=== PATIENT | female | born 1945 | race African-American/Black ===

== ENCOUNTER 2019-05-22 11:11 | Inpatient (IN) ==
[2019-05-22 12:47] LABS: EOS# 0.01 X1000 (0.0-0.7); EOS% 0.3 % (0.0-10.0); HEMATOCRIT 22.4 % (37.0-47.0); HEMOGLOBIN 7.3 g/dL (12.0-16.0); LYMPH# 0.31 X1000 (1.2-3.4); LYMPH% 10.1 % (20.5-51.1); MCH 31.3 PG (27-31); MCHC 32.6 g/dL (33-37); MCV 96.1 FL (81-99); MONO# 0.25 X1000 (0.11-0.59); MONO% 8.1 % (1.7-9.3); MPV 8.6 FL (7.4-10.4); NEUT% 81.5 % (42.2-75.2); PLT 181 X1000 (130-400); RBC 2.33 XMIL (4.2-5.4); RDW 12.7 % (11.5-14.5); WBC 3.07 X1000 (4.8-10.8)
--- NOTE | 2019-05-22 12:49 | Diag Imaging Result Doc PS360 ---
EXAM: XRAY PELVIS W/HIP 2-3VW LT 05/22/2019 HISTORY: fall, injury TECHNIQUE: AP pelvis and left hip three views COMMENT: There has been previous internal fixation of the left femur. There is some heterotopic bone formation. The joint spaces are fairly well-maintained and symmetrical. There is a lytic lesion in the superior pubic ramus on the left which may extend into the acetabular region. This was not present on the CT of 04/11/2017. IMPRESSION: Lytic lesion in the left superior pubic ramus, probably due to metastatic disease. Electronically signed by Rajeev Mcdaniel 05/22/2019 12:47 PM
[2019-05-22 13:31] LABS: AGAP 11; ALKALINE PHOSPHATASE 325 U/L (32-104); BUN 18 mg/dL (8-22); CALCIUM 7.8 mg/dL (8.8-10.2); CHLORIDE 90 mmol/L (98-107); COSMO 253; CREATININE 0.8 mg/dL (0.5-0.9); ESTIMATED GFR > 60; GLUCOSE 125 mg/dL (70-104); GOT 57 U/L (10-30); GPT 6 U/L (10-36); POTASSIUM 5.2 mmol/L (3.5-5.1); SODIUM 124 mmol/L (136-145); TCO2 23 mmol/L (25-35); TOTAL BILIRUBIN 0.38 mg/dL (0.20-1.00); TOTAL PROTEIN 6.1 g/dL (6.3-8.3)
[2019-05-22] MEDS ORDERED: M.V.I.-12 10 ML, FOLIC ACID 1 MG, MAGNESIUM SULFATE 1 GM, THIAMINE 100 MG in NS 1,000 ML IV ONE (14:17)
[2019-05-22 14:19] LABS: URINE SOURCE CATH
[2019-05-22 14:23] LABS: BILIRUBIN URINE NEGATIVE (NEGATIVE); BLOOD URINE TRACE (NEGATIVE); COLOR ORANGE; GLUCOSE URINE NEGATIVE (NEGATIVE); KETONE URINE NEGATIVE (NEGATIVE); LEUKOCYTES URINE MODERATE (NEGATIVE); NITRITE URINE POSITIVE (NEGATIVE); PROTEIN URINE 50 mg/dL (NEGATIVE); SP GRAVITY URINE 1.012; TURBIDITY URINE HAZY (CLEAR); UR EPITHELIAL CELLS <10 /HPF (<10); URINE BACTERIA 2+ /HPF; URINE RBC <10 /HPF (<10); URINE WBC TNTC /HPF (<10); UROBILINOGEN URINE 4 mg/dL (NORMAL)
[2019-05-22] MEDS ORDERED: ROCEPHIN 1 GM in NS 50 ML IV ONE (14:45)
--- NOTE | 2019-05-22 15:11 | PROVIDER DOCUMENTATION ---
This chart was entered by Gricelda Dahl Scribe, acting as scribe for Joe Perea MD. HPI-Musculoskeletal Pain/Inj - GENERAL Chief Complaint: Hip Pain Stated Complaint: HIP PAIN Time Seen by Provider: 05/22/19 12:05 Source: family - HX OF PRESENT ILLNESS-MUSKULOSKELTAL Nature of Presenting Problem: Patient is a 73 year old female who presents with left hip pain. Family states left hip pain started yesterday. Family reports patient fell 1 week ago. Family states patient was diagnosed with cancer in December 2018. Family reports decrease in appetite over the last 2 weeks. Family denies patient is on hospice. Quality of Pain: reports: aching Severity in ED: mild Onset/Duration: 24 hours ago Timing: still present Any recent injury?: Yes (fall 1 weeks ago ) Locality of Occurance: Home Similar Symptoms Previously?: Yes Recently seen or treated by another doctor?: Yes - FALL INJURY Location of Pain/Injury: reports: lower extremity (left hip) Pain Radiation: reports: no radiation Reason for Fall: reports: unknown Loss of Consciousness: no loss of consciousness Injury Associated Symptoms: reports: denies symptoms - HIP/PELVIS PAIN/INJURY Hip Pain Location: reports: hip (L) Pain Radiation: reports: no radiation Context / Method of Injury: reports: unknown Associated Symptoms: reports: denies symptoms - LOWER EXTREMITY PAIN/INJURY Lower Extremities Pain: hip: left Context / Method of Injury: reports: unknown Associated Symptoms: reports: denies symptoms Review of Systems - Adult - REVIEW OF SYSTEMS - ADULT Constitutional: reports: no symptoms reported. denies: chills, fever, fatique Eyes: reports: no symptoms reported Ears, Nose, Mouth & Throat: reports: no symptoms reported Cardiovascular: reports: no symptoms reported Respiratory: reports: no symptoms reported Gastrointestinal: reports: see HPI, poor appetite. denies: nausea, vomiting Genitourinary: reports: no symptoms reported Musculoskeletal: reports: see HPI, other (left hip pain). denies: back pain, neck pain Integumentary: reports: no symptoms reported Neurological: reports: no symptoms reported Psychiatric: reports: no symptoms reported Endocrine: reports: no symptoms reported Hematologic/Lymphatic: reports: no symptoms reported Allergic/Immunologic: reports: no symptoms reported All Other Systems: Reviewed and Negative Past History - Adult - PAST MEDICAL HISTORY-ADULT Review of Records: reports: Old Records Reviewed, Nursing Assessment Review, Medications Reviewed, Social history reviewed & non-contributory. Major Childhood Illnesses: reports: denies history Cardiovascular: reports: HTN Respiratory: reports: denies history Gastrointestinal: reports: GERD, liver disease Obstetrical/Gynecological: reports: other (cervical ca) Genitourinary: reports: kidney disease, kidney stones (stent placement) Musculoskeletal: reports: denies history Neurological: reports: CVA, dementia, Seizures/Epilepsy, other (anneurysm and head bleed) Endocrine/Immune: reports: thyroid disorder Other Conditions: reports: denies history - PRIOR SURGERIES/PROCEDURES Surgical/Procedure History: reports: reviewed, not pertinent, other (bladder stent, cataract removal, brain) - IMMUNIZATION STATUS Childhood Immunizations: See Nurse Assessment Flu Vaccine: See Nurse Assessment - FAMILY HISTORY Family History: reviewed, not pertinent - SOCIAL HISTORY Smoking: denies Substance Use: denies Living Situation: family Physical Exam-Injury Related - Physical Exam-Injury Related Initial Vital Signs Reviewed: Yes General Appearance: alert, no apparent distress, cachetic, thin. negative: lethargic Respiratory: chest non-tender, lungs clear, normal breath sounds. negative: rhonchi, wheezing Cardiovascular: normal peripheral pulses, regular rate, rhythm. negative: tac hycardia Abdominal Exam: normal bowel sounds, non tender, soft. negative: guarding Extremity: non-tender, normal inspection. negative: deformity, erythema Integumentary: normal color, warm/dry. negative: ecchymosis, abrasion, laceration Neurologic: grossly normal. negative: aphasia, facial droop Psych/Mental Status: normal mood/affect, oriented x 3. negative: anxious Progress - PLAN OF CARE/RESULTS Progress/Plan/Lab Results: Vital Signs - 8 hr 05/22/19 11:16 05/22/19 14:18 05/22/19 14:30 Temperature 97.8 F Pulse Rate 92 H Respiratory Rate 20 Blood Pressure 115/78 110/66 O2 Sat by Pulse Oximetry 98 100 05/22/19 14:40 05/22/19 14:50 05/22/19 15:00 Temperature Pulse Rate Respiratory Rate Blood Pressure O2 Sat by Pulse Oximetry 100 100 100 05/22/19 15:02 05/22/19 15:10 05/22/19 15:20 Temperature Pulse Rate Respiratory Rate Blood Pressure 100/67 O2 Sat by Pulse Oximetry 100 100 100 05/22/19 15:30 05/22/19 15:40 05/22/19 15:50 Temperature Pulse Rate Respiratory Rate Blood Pressure O2 Sat by Pulse Oximetry 100 94 L 95 05/22/19 16:00 05/22/19 16:02 05/22/19 16:10 Temperature Pulse Rate Respiratory Rate Blood Pressure 112/77 O2 Sat by Pulse Oximetry 98 99 97 05/22/19 16:20 Temperature Pulse Rate Respiratory Rate Blood Pressure O2 Sat by Pulse Oximetry 100 Laboratory Results - last 24 hr 05/22/19 05/22/19 05/22/19 12:20 12:20 12:20 WBC 3.07 L RBC 2.33 L Hgb 7.3 L Hct 22.4 L MCV 96.1 MCH 31.3 H MCHC 32.6 L RDW Std Deviation 12.7 Plt Count 181 MPV 8.6 Immature Gran % (Auto) 0.0 Neut % (Auto) 81.5 H Lymph % (Auto) 10.1 L [place] % (Auto) 8.1 Eos % (Auto) 0.3 Baso % (Auto) 0.0 Immature Gran # (Auto) 0.00 Neut # (Auto) 2.50 Lymph # (Auto) 0.31 L [place] # (Auto) 0.25 Eos # (Auto) 0.01 Baso # (Auto) 0.00 Sodium 124 L Potassium 5.2 H Chloride 90 L Carbon Dioxide 23 L Anion Gap 11 BUN 18 Creatinine 0.8 Estimated GFR/1.73 m2 > 60 BUN/Creatinine Ratio 23 Glucose 125 H Calculated Osmolality 253 Calcium 7.8 L Phosphorus Magnesium Total Bilirubin 0.38 AST 57 H ALT 6 L Alkaline Phosphatase 325 H Total Protein 6.1 L Albumin 3.0 L Globulin 3.1 Albumin/Globulin Ratio 1.0 Urine Source Urine Color Urine Turbidity Urine pH Ur Specific [place] Urine Protein Ur Glucose (Stick) Ur Ketones (Stick) Urine Blood Urine Nitrite Urine Bilirubin Urobilinogen Dipstick Urine Leukocytes Urine WBC (Auto) Urine RBC (Auto) U Epithel Cells (Auto) Urine Bacteria (Auto) Total Phenytoin 2.30 L 05/22/19 05/22/19 05/22/19 12:20 12:20 14:16 WBC RBC Hgb Hct MCV MCH MCHC RDW Std Deviation Plt Count MPV Immature Gran % (Auto) Neut % (Auto) Lymph % (Auto) [place] % (Auto) Eos % (Auto) Baso % (Auto) Immature Gran # (Auto) Neut # (Auto) Lymph # (Auto) [place] # (Auto) Eos # (Auto) Baso # (Auto) Sodium Potassium Chloride Carbon Dioxide Anion Gap BUN Creatinine Estimated GFR/1.73 m2 BUN/Creatinine Ratio Glucose Calculated Osmolality Calcium Phosphorus 3.2 Magnesium 1.5 Total Bilirubin AST ALT Alkaline Phosphatase Total Protein Albumin Globulin Albumin/Globulin Ratio Urine Source CATH Urine Color ORANGE Urine Turbidity HAZY Urine pH 6.0 Ur Specific [place] 1.012 Urine Protein 50 A Ur Glucose (Stick) NEGATIVE Ur Ketones (Stick) NEGATIVE Urine Blood TRACE A Urine Nitrite POSITIVE A Urine Bilirubin NEGATIVE Urobilinogen Dipstick 4 A Urine Leukocytes MODERATE A Urine WBC (Auto) TNTC A Urine RBC (Auto) <10 U Epithel Cells (Auto) <10 Urine Bacteria (Auto) 2+ Total Phenytoin Orders Category Date Time Status [facility] Routine AdmDCTranf 05/22/19 16:43 Active Activity - Up with Assistance ORDERED Care 05/22/19 16:43 Active Intake and Output-Strict ORDERED Care 05/22/19 16:43 Active Vital Signs Order Q 8-HR ASSESS Care 05/22/19 16:43 Active Z-Document. for Tele Applied ORDERED Care 05/22/19 16:44 Active Social Service Consult Routine Cons 05/22/19 16:43 Active Mechanical Soft Diet Diet 05/22/19 16:44 Active XRAY PELVIS W/HIP 2-3VW LT [RAD] Stat Exams 05/22/19 12:07 Completed CBC WITH DIFF [HEME] Routine Lab 05/23/19 06:00 Uncollected CBC WITH ELECTRONIC DIFF [HEME] Stat Lab 05/22/19 12:20 Completed COMPREHENSIVE METABOLIC PANEL [CHEM] Routine Lab 05/23/19 06:00 Uncollected COMPREHENSIVE METABOLIC PANEL [CHEM] Stat Lab 05/22/19 12:20 Completed MAGNESIUM [CHEM] Routine Lab 05/23/19 06:00 Uncollected MAGNESIUM [CHEM] Stat Lab 05/22/19 12:20 Completed PHENYTOIN [TDM] Stat Lab 05/22/19 12:20 Completed PHOSPHORUS [CHEM] Stat Lab 05/22/19 12:20 Completed TSH Routine Lab 05/23/19 06:00 Uncollected UA [URINALYSIS W/POSS RFLX CULT] [URINALYSIS] Stat Lab 05/22/19 14:16 Completed URINE CULTURE [RM] Routine Lab 05/22/19 14:48 Received 0.9% Sodium Chloride Inj [Ns] 1,000 ml Med 05/22/19 16:45 Active IV 100 mls/hr CefTRIAXONE [Rocephin] 1 gm Med 05/22/19 14:45 Discontinued 0.9% Sodium Chloride Inj [Ns] 50 ml IV NOW Enoxaparin [Lovenox] Med 05/22/19 18:00 Active 40 mg SUBQ Q24H Hydrocodone/APAP 7.5 mg/325 mg [[place]-7.5] Med 05/22/19 16:43 Active 1 - 2 each PO Q4HR PRN Levetiracetam [Keppra] 1,500 mg Med 05/22/19 15:46 Discontinued 0.9% Sodium Chloride Inj [Ns] 100 ml IV NOW Lorazepam [Ativan] Med 05/22/19 15:46 Discontinued 1 mg IV NOW ONE Mvi [M.v.i.-12] 10 ml Med 05/22/19 14:17 Discontinued Folic Acid 1 mg Magnesium Sulfate 1 gm Thiamine 100 mg 0.9% Sodium Chloride Inj [Ns] 1,000 ml IV NOW Promethazine [Phenergan] Med 05/22/19 16:43 Active 12.5 mg IV Q6H PRN PRN Sodium Chloride 0.9% Med 05/22/19 16:43 Active 10 ml INJ PRN PRN Telemetry [OM.EQ] Routine Oth 05/22/19 16:43 Active Transfer/Admit Order [TRANSFER] Routine Transfer 05/22/19 16:42 Ordered After admit called pt has seizure in the ER. Family notes that she hasnt been taking her seizure meds and certainly not today. Seizure meds started in the eR. Result Diagrams: 05/22/19 12:20 05/22/19 12:20 - XRAY 1 XRAY: Left XRAY Study: Pelvis, Hip Impression: See EMR Report ( EXAM: XRAY PELVIS W/HIP 2-3VW LT 05/22/2019 HISTORY: fall, injury TECHNIQUE: AP pelvis and left hip three views COMMENT: There has been previous internal fixation of the left femur. There is some heterotopic bone formation. The joint spaces are fairly well-maintained and symmetrical. There is a lytic lesion in the superior pubic ramus on the left which may extend into the acetabular region. This was not present on the CT of 04/11/2017. IMPRESSION: Lytic lesion in the left superior pubic ramus, probably due to metastatic disease. Electronically signed by Rajeev Mcdaniel 05/22/2019 12:47 PM 05/22/19 1247 Interpreting Physician: Rajeev Mcdaniel MD Dictated Date/Time: 05/22/19 1245 cc: Joe Perea MD; Milton Rothman MD) - CONSULTS/PCP/HOSPITALIST Notification #1 *Consult/PCP/Hospitalist*: Marbella flores hospitalist Time Discussed: 15:10 Consult Disposition: Will see in ED, Admit Departure - Departure Date of Disposition Decision: 05/22/19 Time of Disposition Decision: 15:09 DIAGNOSIS: UTI (urinary tract infection), Anemia, Dehydration, Hyponatremia, Hyperkalemia, Cachexia, Seizure Disposition: ADMITTED INPATIENT 09 Certified Medical Emergency: Emergent Condition: Fair - Critical Care Note This patient required my direct & personal management of CC.: No Attestation - Physician/ SIMÓN Attestation Patient care was provided by Advanced Practice Provider:: No The physician spent face to face time with patient:: Yes Advanced Practice Provider documentation review:: Supervising physician onsite and consulted in the evaluation and care of this patient. The physician did have a face to face encounter with the patient. This chart was documented by the indicated scribe, (Gricelda Dahl Scribe) and accurately reflects the services I performed and decisions made by me, Joe Perea MD, as attested by the provider's signature.
[2019-05-22] MEDS ORDERED: KEPPRA 1,500 MG in NS 100 ML IV ONE (15:46)
[2019-05-22] MEDS ORDERED: ATIVAN IV ONE (15:46)
[2019-05-22] MEDS ORDERED: NORCO-7.5 PO PRN (16:43)
[2019-05-22] MEDS ORDERED: PHENERGAN IV PRN (16:43)
[2019-05-22] MEDS ORDERED: SODIUM CHLORIDE 0.9% INJ PRN (16:43)
--- NOTE | 2019-05-22 18:18 | HISTORY AND PHYSICAL ---
PRIMARY CARE PHYSICIAN: Milton Rothman MD. PRESENTING COMPLAINT: Left hip pain for 3 days. HISTORY OF PRESENTING COMPLAINT: Ms. Key is a 73-year-old, -Mongolian female, with history of hypothyroidism, brain aneurysm, seizure secondary to brain aneurysm, dementia, who has recently been diagnosed with advanced liver cancer since December by Dr. Frankel in [facility] and patient was advised to go on hospice. Since December, Ms. Key has been home with her daughter, but has not been on any formal hospice care. According to the daughter, Ms. Key was able to move around some, but for the past 3 days, she has just been bedridden. She has been complaining of extreme pain to the left side of the hip, so the daughter brought her to the emergency department for medical evaluation. Upon presentation, Ms. Key was evaluated, was found to be severely dehydrated. During the ER stay, I understand Ms. Key had a generalized tonic-clonic seizure that lasted for about 2 minutes. Of note, Ms. Key is also a very strong alcohol drinker, takes about 3 to 4 cans of beer on a daily basis, and this is even on a day that she does not feel good. PAST MEDICAL HISTORY: 1. Depression. 2. Chronic pain. 3. Hypertension. 4. Previous history of cervical cancer, status post chemotherapy and radiation therapy. 5. Brain aneurysm. 6. Seizures. 7. Dementia. PAST SURGICAL HISTORY: 1. Brain surgery for aneurysm bleed evacuation. 2. Nephrostomy tube. 3. Cystoscopy with stent exchange. 4. Volvulus repair. FAMILY HISTORY: Positive for thyroid disorders and kidney disease. SOCIAL HISTORY: Patient currently lives with the daughter. She drinks about 4 to 5 cans of beer on a daily basis. She also did tobacco. CURRENT MEDICATIONS INCLUDE: 1. Phenytoin 200 mg p.o. at bedtime. 2. Ranitidine 150 p.o. daily. 3. Synthroid 50 mcg daily. 4. Benazepril 5 mg daily. 5. Paroxetine 10 mg p.o. daily. 6. Keppra 750 b.i.d. 7. Dronabinol 5 mg t.i.d. REVIEW OF SYSTEMS: Ms. Key herself is extremely weak and very noncooperative with interrogation. The daughter refers no further complaints, except what we have in the HPI. CURRENT PHYSICAL EXAMINATION: Vitals: Blood pressure is 112/77, pulse of 92, respiration is 20, temperature is 97.8 degrees. Patient is saturating 98% on room air. General: Ms. Key is a 73-year-old, -Mongolian female. She is in bed. She looks extremely emaciated and chronically ill. She has BMI of 13.4. mouth/eyes: Mucosa is extremely dry. Anicteric and acyanotic. Neck: Supple. No JVD. No carotid bruit. Head: Normocephalic. There is an old scar on the left frontotemporal region. Respiratory system: Good air entry bilaterally. There are no crepitations, no rhonchi. Cardiovascular: Regular rate and rhythm. Abdomen: Soft, nontender. There is an old infraumbilical surgical scar. Extremities: No pedal edema. Central nervous system: Patient is awake, alert. Speaks in very, very, very low tone, almost incomprehensible. She is able to move all extremities on extreme painful stimulation. I think part of it is that she is remarkably weak from her underlying disease, and also from severe emaciation and dehydration, that she is not able to move that much. LABORATORY AND DIAGNOSTIC DATA: WBC is 3.09, hemoglobin is 7.3, platelet count of 181,000. Chemistry is also reviewed. Sodium is 124, potassium is 5.2, bicarbonate is 23. Alkaline phosphatase is 326. Urinalysis shows nitrite positive. The patient has had multiple E. coli. Recent urine culture did show Staphylococcus warneri. An x-ray of the hip shows a lytic lesion in the left superior pubic ramus, probably due to metastatic disease. ASSESSMENT: Ms. Key is a 73-year-old, -Mongolian female, with advanced metastatic liver cancer, who has been advised to go on hospice. She was brought in today because of inability to walk, extreme pain in the left hip. X-ray has shown a metastatic lytic lesion. 1. Intractable pain to the left hip secondary to lytic lesion. Patient also had previous orthopedic surgery with hardware in the left hip. We are going to start her on pain management regimen. I will also recommend the patient to be seen by hospice. 2. Severe clinical volume depletion. Will continue with gentle hydration overnight. 3. History of seizure disorder with seizure episode during the emergency room course. The patient has been started on her home medication and we will use p.r.n. Ativan if needed. 4. Advanced liver cancer. The patient is supposed to follow up with Dr. Frankel in [facility] in [place]. However, she has been advised to go on hospice. We will get Palliative Medicine to evaluate the patient. 5. Severe malnourishment with a body mass index of 13.4. 6. Suspected urinary tract infection. Patient has been started on antimicrobial until we have the urine culture results. 7. Normocytic anemia, presumably due to underlying malignancy. We will continue to trend the hemoglobin and hematocrit, transfuse if necessary. 8. Elevated alkaline phosphatase, likely due to metastatic bone disease. PLAN: So, in general, we are going to admit Ms. Key on the medical floor with neurological checks. She will be started back on her home medications. We will use p.r.n. Ativan if needed for seizures. We will hydrate her overnight and also get Palliative Care consult for hospice evaluation. I have discussed the plan with the daughter who was at the bedside at the time of the encounter. cc: Quinn King MD
[2019-05-22] MEDS ORDERED: DILANTIN PO SCH (21:00)
[2019-05-22] MEDS ORDERED: KEPPRA PO SCH (21:00)
[2019-05-22 21:14] LABS: AGAP 12; ALB/GLOB RATIO 0.8; ALBUMIN 2.8 g/dL (3.5-5.0); ALKALINE PHOSPHATASE 334 U/L (32-104); BUN 19 mg/dL (8-22); CALCIUM 8.2 mg/dL (8.8-10.2); CHLORIDE 93 mmol/L (98-107); COSMO 259; CREATININE 0.5 mg/dL (0.5-0.9); ESTIMATED GFR > 60; GLUCOSE 87 mg/dL (70-104); GOT 59 U/L (10-30); GPT 7 U/L (10-36); MAGNESIUM 1.7 mg/dL (1.5-2.7); SODIUM 128 mmol/L (136-145); TCO2 23 mmol/L (25-35); TOTAL BILIRUBIN 0.38 mg/dL (0.20-1.00); TOTAL PROTEIN 6.2 g/dL (6.3-8.3)
[2019-05-22 21:32] LABS: EOS# 0.01 X1000 (0.0-0.7); EOS% 0.3 % (0.0-10.0); HEMATOCRIT 24.7 % (37.0-47.0); LYMPH% 11.5 % (20.5-51.1); MCH 31.6 PG (27-31); MCHC 32.4 g/dL (33-37); MCV 97.6 FL (81-99); MONO# 0.33 X1000 (0.11-0.59); MONO% 9.5 % (1.7-9.3); MPV 9.2 FL (7.4-10.4); NEUT# 2.74 X1000 (1.4-6.5); NEUT% 78.7 % (42.2-75.2); PLT 191 X1000 (130-400); RBC 2.53 XMIL (4.2-5.4); RDW 12.6 % (11.5-14.5); WBC 3.48 X1000 (4.8-10.8)
[2019-05-22] MEDS: MARINOL PO SCH (23:17)
[2019-05-22] MEDS: NS 1,000 ML IV SCH (23:18)
[2019-05-22] MEDS: LOVENOX SUBQ SCH (23:19)
[2019-05-22] MEDS ORDERED: DILANTIN IV ONE (23:53)
[2019-05-23] MEDS: SYNTHROID PO SCH (06:56)
[2019-05-23] MEDS: KEPPRA PO SCH ×2 (09:18→22:06)
[2019-05-23] MEDS: MARINOL PO SCH ×3 (09:18→18:32)
[2019-05-23] MEDS: ZANTAC PO SCH (09:19)
[2019-05-23] MEDS: PAXIL PO SCH (09:19)
--- NOTE | 2019-05-23 17:46 | PROGRESS NOTE ---
DATE: 05/23/2019 SUBJECTIVE: This morning Ms. Key continues to be minimally responsive. No new complaints. OBJECTIVE: Vital signs: Blood pressure is 108/66, pulse of 72, respirations 16, temperature 97.8 degrees, the patient was saturating 100% on room air. General: Ms. Key is a 73 years female. She is in bed. She is extremely emaciated and chronically ill-looking. HEENT: Mucosa is slightly pale. Anicteric. Acyanotic. Looks dry. Chest: Air entry is bilaterally reduced but no crepitations. No rhonchi. Cardiovascular: Regular rate and rhythm. Gastrointestinal: Abdomen is soft. There is an old infraumbilical surgical scar. Bowel sounds were present. Extremities: No pedal edema. Central Nervous System: Patient is sleepy, but easily arousable. Could hardly comprehend what she was saying, but she would move her extremities to painful stimulation. LABORATORY DATA: WBC is 3.48, hemoglobin is 8.0, platelet count of 191,000. Chemistry is reviewed; sodium is 128, potassium is 5.0. ASSESSMENT: 1. Intractable pain to the left hip secondary to lytic lesion. The patient continues to be on pain management. 2. Clinical volume depletion. We will continue with gentle hydration. 3. 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 The patient had already been seen by Dr. Frankel from [facility] in [place], and had been recommended to go on hospice. Palliative Medicine has been consulted. 4. Severe malnourishment with Body Mass Index of 13.4. The patient has been encouraged to take Boost. 5. Gram-negative david urinary tract infection. Patient has been started on antimicrobial therapy, and we are going to continue awaiting the ID and sensitivity. 6. Normocytic anemia secondary to anemia of chronic disease. 7. Elevated alkaline phosphatase secondary to bone metastases, presumably. 8. History of seizure disorder. Patient has been started on her Keppra. In general, Ms. Key continues to be remarkably ill-looking. Therapy Tech has been consulted for hospice. We will continue with pain management, hydration, and re-evaluate her tomorrow. cc: Quinn King MD [facility]
[2019-05-23] MEDS: NS 1,000 ML IV SCH (18:33)
[2019-05-23] MEDS ORDERED: DILANTIN PO SCH (21:00)
[2019-05-23] MEDS: LOVENOX SUBQ SCH (22:07)
[2019-05-24] MEDS: NS 1,000 ML IV SCH ×2 (02:10→12:09)
[2019-05-24] MEDS: SYNTHROID PO SCH (06:57)
[2019-05-24] MEDS: KEPPRA PO SCH (09:35)
[2019-05-24] MEDS: PAXIL PO SCH (09:35)
[2019-05-24] MEDS: ZANTAC PO SCH (09:35)
[2019-05-24] MEDS: MARINOL PO SCH ×2 (09:37→12:10)
[2019-05-24 11:57] VITALS: BP 111/66
--- NOTE | 2019-05-25 06:57 | DISCHARGE SUMMARY ---
ADMISSION DATE: 05/22/2019 DISCHARGE DATE: 05/24/2019 DISPOSITION: Home on hospice. CONSULTATIONS DURING THIS ADMISSION: None. IMAGING STUDIES OF SIGNIFICANCE: An x-ray of the hip did show a lytic lesion in the left superior pubic ramus, probably due to metastatic disease. ADMISSION DIAGNOSES: 1. Intractable pain to the left hip. 2. Severe clinical volume depletion. 3. Advanced liver cancer. 4. Severe malnourishment. DIAGNOSES AT THE TIME OF DISCHARGE: 1. Intractable pain to the left hip secondary to lytic lesion. 2. Clinical volume depletion. 3. 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 Patient was seen by Dr. Donald from [facility] in [place] and was recommended to be on hospice. 4. Severe malnourishment with a BMI of 13.4. 5. Escherichia coli urinary tract infection. 6. Normocytic anemia secondary to chronic disease. 7. Elevated alkaline phosphatase secondary to bone metastasis. 8. History of seizures. DISCHARGE MEDICATIONS: 1. Phenytoin 300 mg p.o. at bedtime. 2. Ranitidine 150 p.o. daily. 3. Levothyroxine 50 mcg p.o. daily. 4. Benazepril 0.5 mg daily. 5. Paroxetine 10 mg p.o. daily. 6. Keppra 1000 mg b.i.d. 7. Dronabinol 5 mg p.o. t.i.d. 8. Keflex 50 mg p.o. b.i.d. PRESENTING COMPLAINT: Left hip pain for 3 days. HISTORY OF PRESENTING COMPLAINT: Ms. Key is a 73-year-old female with a history of advanced liver/pancreatic cancer according to the family, who was diagnosed by Dr. Donald in December in [facility] and was advised to go home on hospice. The patient has been on hospice at home, but not being followed by any company. The family brought her to the emergency room because of ongoing pain. Upon presenting to the emergency department patient was evaluated, x-ray of the hips revealed lytic lesion to the left hip which was the place of major pain. We think this is because of the lytic lesion. Ms. Key was also found to be remarkably dehydrated. The patient could hardly even mumble any word. She was admitted for medical management and hospice arrangements. HOSPITAL COURSE: Ms. Key was admitted to the medical floor, was initially fluid resuscitated and was started on broad-spectrum IV antibiotics. Overnight Ms. Key improved remarkably. She was now more energetic, talking more, was smiling and was able to eat her food. Her urine culture came back positive for E. coli which was pansensitive, so she was transitioned to p.o. Keflex. The family members have already called [facility]. She has been evaluated here in the hospital and she has been admitted on home hospice. Ms. Key is therefore being discharged home in fairly stable condition, but obviously sick with very poor prognosis on hospice. Currently, her vitals, blood pressure is 111/66, pulse of 78, respirations 16, temperature 98.1 degrees. Patient was saturating 96%. TIME SPENT FOR DISCHARGE: 35 minutes. cc: MD Milton Payne MD
== END 2019-05-24 16:17 | disposition hospice, home (50) | DRG 100 ==
LOC: ED 11:11 → 4N 17:31
PROVIDERS: ATTEND Internal Medicine